=== PATIENT | male | born 1970 | race Two or more races ===

== ENCOUNTER 2021-01-31 16:14 | Emergency (ER) | payer MEDICAID ==
[~2021-01-31] VITALS: Ht 162.6 cm; Wt 93.0 kg
[~2021-01-31 16:14] MED LIST: NORPTMEDS CO
[2021-01-31 17:12] LABS: Urine Bacteria MOD /hpf (None Seen); Urine Blood 3+ /uL (Negative); Urine Specific Gravity 1.004 (1.001-1.035); Urine WBC 2 /hpf (0 - 3)
[2021-01-31 20:56] VITALS: BP 133/84
== END 2021-01-31 21:01 | disposition home or self-care (01) ==
LOC: ER 16:14
DX: N39.0 Urinary tract infection, site not specified (principal); E66.9 Obesity, unspecified; Z68.35 Body mass index [BMI] 35.0-35.9, adult; Z88.5 Allergy status to narcotic agent; Z88.8 Allergy status to other drugs, medicaments and biological substances
CPT/HCPCS: 81001